=== PATIENT | female | born 1970 | race Caucasian/White ===

== ENCOUNTER 2019-03-20 09:17 | Emergency (ER) | payer BC, OTHER ==
[2019-03-20 09:26] VITALS: PULSE 80; TEMP 97.8
[2019-03-20 09:33] VITALS: RESP 18
[2019-03-20 09:59] LABS: BASOPHILS % (AUTO) 1 % (0-3); EOSINOPHILS % (AUTO) 5 % (0-9); HEMATOCRIT 40 % (35-47); HEMOGLOBIN 12.8 gm/dl (12.0-15.5); LYMPHOCYTES % (AUTO) 17.6 % (10-50); MEAN CORPUSCULAR HEMOGLOBIN 32.1 pg (27.0-32.0); MEAN CORPUSCULAR HGB CONC 32.3 gm/dl (32.0-36.0); MONOCYTES % (AUTO) 8.9 % (0-12); NEUTROPHILS % (AUTO) 67.6 % (37-80)
[2019-03-20 10:03] LABS: MEAN CORPUSCULAR VOLUME 100 fL (81-99)
[2019-03-20 10:07] LABS: CALCIUM 7.8 mg/dl (8.5-10.1); CARBON DIOXIDE 24.2 mEq/L (21-32); CREATININE 0.57 mg/dl (0.60-1.00)
[2019-03-20 11:10] VITALS: O2SAT 98
[2019-03-20 11:11] VITALS: BP 107/79
== END 2019-03-20 11:08 | disposition home or self-care (01) ==
LOC: ED 09:17
DX: F41.9 Anxiety disorder, unspecified (principal); R06.02 Shortness of breath
CPT/HCPCS: 36415; 71045; 80048; 85025; 93005; 99283